=== PATIENT | male | born 1985 | race Asian ===

== ENCOUNTER 2021-09-09 12:28 | Emergency (ER) | payer OTHER ==
[~2021-09-09] VITALS: Ht 157.5 cm; Wt 75.9 kg
[2021-09-09 12:30] VITALS: BP 122/91
== END 2021-09-09 14:02 | disposition left against medical advice (07) ==
LOC: EMS 12:29
DX: S61.401A Unspecified open wound of right hand, initial encounter (principal); S61.402A Unspecified open wound of left hand, initial encounter; X58.XXXA Exposure to other specified factors, initial encounter; Y93.89 Activity, other specified; Y92.89 Other specified places as the place of occurrence of the external cause; Y99.8 Other external cause status; Z53.21 Procedure and treatment not carried out due to patient leaving prior to being seen by health care provider

== ENCOUNTER 2021-09-13 13:50 | Emergency (ER) | payer SELFPAY ==
[~2021-09-13] VITALS: Ht 154.9 cm; Wt 77.3 kg
[2021-09-13 14:40] VITALS: BP 125/85
== END 2021-09-13 16:16 | disposition left against medical advice (07) ==
LOC: EMS 14:00
DX: Z48.00 Encounter for change or removal of nonsurgical wound dressing (principal); Z53.21 Procedure and treatment not carried out due to patient leaving prior to being seen by health care provider

== ENCOUNTER 2021-09-16 14:16 | Emergency (ER) | payer SELFPAY ==
[~2021-09-16] VITALS: Ht 157.5 cm; Wt 77.3 kg
[2021-09-16] MEDS ORDERED: CEPH-558 PO (16:38)
[2021-09-16 17:00] VITALS: BP 149/87
== END 2021-09-16 17:02 | disposition home or self-care (01) ==
LOC: EMS 14:18
DX: L30.1 Dyshidrosis [pompholyx] (principal)
CPT/HCPCS: 99283; Z7502